=== PATIENT | female | born 2000 | race Caucasian/White ===

== ENCOUNTER 2018-10-06 22:44 | Inpatient (IN) | payer MEDICAID ==
[2018-10-07] MEDS ORDERED: DEXTROSE 50%-WATER SYRINGE 25 GM/50 ML DOSE IV PRN (00:30)
[2018-10-07] MEDS ORDERED: DEXTROSE 50%-WATER SYRINGE 12.5 GM/25 ML DOSE IV PRN (00:30)
[2018-10-07] MEDS ORDERED: DEXTROSE 40% GEL 15 GM TUBE PO PRN (00:30)
[2018-10-07] MEDS ORDERED: GLUCAGON,HUMAN RECOMB 1 MG INJ IM PRN (00:30)
[2018-10-07] MEDS ORDERED: DEXTROSE 40% GEL 15 GM TUBE X 2 PO PRN (00:30)
--- NOTE | 2018-10-07 00:33 | Admission Physical ---
Datetime Report Generated by CPN: 10/07/2018 00:33 CURRENT ADMISSION Chief Complaint: Other Chief Complaint Other: Elevated blood sugars, Pt with type 1 DM for 12 years Indication for Induction: Not Applicable Admit Impression : Medical Complication Admit Plan: Observation/Evaluation PHYSICAL EXAM General: Normal HEENT: Normal Neurologic: Normal Thyroid: Normal Heart: Normal Lungs: Normal Breast: Deferred Back: Normal Abdomen: Normal Genitourinary Exam: Deferred Extremities: Normal DTRs: Normal Pelvic Type: Adequate Vital Signs: Reviewed FETUS A Monitoring: External US FHR- Baseline: 120 Variability: Moderate 6-25bpm Decelerations: None FHR Category: Category I Admit Comment: Admit, begin IV fluids and insulin. Hospitalist consulted. INFORMED CONSENT Signature: with User ID: [email or web address]
[2018-10-07] MEDS ORDERED: RINGERS SOLUTION,LACTATED 1,000 ML IV PRN (00:36)
[2018-10-07] MEDS ORDERED: ACETAMINOPHEN 325 MG TABLET PO PRN (00:42)
[2018-10-07] MEDS ORDERED: INSULIN LISPRO 100 UNIT/ML 3 ML VIAL ONE ×5 (00:44→06:56)
[2018-10-07] MEDS ORDERED: ACETAMINOPHEN 325 MG TABLET ONE ×2 (00:47→04:38)
[2018-10-07 01:05] LABS: ABSOLUTE EOSINOPHILS # (AUTO) 0.1 10^3/uL (0.0-0.6); ABSOLUTE LYMPHOCYTES (AUTO) 1.9 10^3/uL (0.5-4.7); ABSOLUTE MONOCYTES (AUTO) 0.8 10^3/uL (0.1-1.4); ABSOLUTE NEUT (AUTO) 6.1 10^3/uL (1.7-8.2); BASOPHILS % (AUTO) 0.3 % (0-2); EOSINOPHILS % (AUTO) 0.7 % (0-6); HEMATOCRIT 31.5 % (36.0-47.0); HEMOGLOBIN 10.8 g/dL (12.0-15.5); LYMPHOCYTES % (AUTO) 21.9 % (13-45); MEAN CORPUSCULAR HEMOGLOBIN 28.4 pg (27.0-33.4); MEAN CORPUSCULAR HGB CONC 34.2 g/dL (32.0-36.0); MEAN CORPUSCULAR VOLUME 83 fl (80-97); MONOCYTES % (AUTO) 8.6 % (3-13); PLATELET COUNT 206 10^3/uL (150-450); RED BLOOD COUNT 3.79 10^6/uL (3.72-5.28); RED CELL DISTRIBUTION WIDTH 12.5 % (11.5-14.0); SEGMENTED NEUTROPHILS % (AUTO) 68.5 % (42-78); TOTAL CELLS COUNTED % (AUTO) 100 %; WHITE BLOOD COUNT 8.9 10^3/uL (4.0-10.5)
[2018-10-07] MEDS: INSULIN LISPRO 100 UNIT/ML 3 ML VIAL SUBCUT SCH ×4 (01:15→06:59)
[2018-10-07 01:16] LABS: APPEARANCE,URINE CLEAR; BILIRUBIN,URINE NEGATIVE (NEGATIVE); COLOR,URINE STRAW; GLUCOSE, URINE >=500 mg/dL (NEGATIVE); KETONES,URINE NEGATIVE (NEGATIVE); LEUKOCYTE ESTERASE,URINE MODERATE (NEGATIVE); NITRITE,URINE NEGATIVE (NEGATIVE); PROTEIN,URINE NEGATIVE (NEGATIVE); URINE SPECIFIC GRAVITY 1.039; UROBILINOGEN,URINE NEGATIVE mg/dL (<2.0)
[2018-10-07 01:28] LABS: ALBUMIN 3.2 g/dL (3.5-5.0); ALKALINE PHOSPHATASE 86 U/L (38-126); ANION GAP 8 (5-19); ASPARTATE AMINO TRANSFERASE 13 U/L (14-36); BILIRUBIN,DIRECT 0.2 mg/dL (0.0-0.4); BILIRUBIN,TOTAL 0.2 mg/dL (0.2-1.3); BLOOD UREA NITROGEN 7 mg/dL (7-20); CALCIUM 8.5 mg/dL (8.4-10.2); CARBON DIOXIDE 23 mmol/L (22-30); CHLORIDE 103 mmol/L (98-107); GLUCOSE 278 mg/dL (75-110); POTASSIUM 3.6 mmol/L (3.6-5.0); TOTAL PROTEIN 5.5 g/dL (6.3-8.2)
[2018-10-07 01:47] LABS: URINE AMPHETAMINES SCREEN NEGATIVE; URINE BARBITURATES SCREEN NEGATIVE; URINE BENZODIAZEPINES SCREEN NEGATIVE; URINE COCAINE SCREEN NEGATIVE; URINE MARIJUANA (THC) SCREEN NEGATIVE; URINE METHADONE SCREEN NEGATIVE; URINE PHENCYCLIDINE SCREEN NEGATIVE
--- NOTE | 2018-10-07 02:11 | Non Stress Test Report ---
Non Stress Test Datetime Report Generated by CPN: 10/07/2018 02:11 DEMOGRAPHIC Test Number: 1 INDICATION Indication for Study: Ordered by Provider; Other Indication for Study (NST) Other: Intermittent montioring Q Shift MONITORING Monitor Explained: Monitor Explained; Test Explained; Patient Verbalized Understanding Monitor Explained Other: NST ordered Q shift Time on Monitor: 10/06/2018 23:08 Time off Monitor: 10/07/2018 01:05 NST Duration: 117 NST INTERVENTIONS NST Interventions: PO Hydration Physician Notified NST: Dr. Pedraza BABY A: [id number] BABY A Movement : Present Contraction Frequency : irirregular with irritability FHR Baseline : 145 Accelerations : 10X10 Decelerations : None Variability : Moderate 6-25bpm NST Review: Appropriate for gestational age NST Results: AGA NST REPORT Report Trigger: Send Report
--- NOTE | 2018-10-07 03:02 | RADIOLOGY REPORT (SQ) ---
EXAM DESCRIPTION: US FOLLOW UP COMPLETED DATE/TME: 10/07/2018 00:00 CLINICAL HISTORY: 18 years, Female, check efw, position, cervical length, placenta COMPARISON: None. TECHNIQUE: Transabdominal pelvic ultrasound. Exam was performed by an research technologist and static images were submitted for review. LIMITATIONS: None. FINDINGS: Maternal: Ovaries: Obscured by gravid maternal uterus. Cervix: Closed and approximately 3.0 cm in length. : Number: Garcia. Status: Live . Presentation: Variable. Heart rate: 147 bpm. JAVED: 22.3 cm. Placenta: Position: Posterior. Complications: No previa or abruptio. Morphology: Cerebral ventricles: Identified. Cerebellum: Identified. Face: Identified. Four-chamber heart: Identified. Spine: Identified. Stomach: Identified. Bladder: Identified. Kidneys: Identified. Umbilical cord: # of vessels: Three. insertion site: Identified. Placental insertion site: Identified. Biometry: BPD: 6.79 cm = 27 weeks 2 days. HC: 25.62 cm = 27 weeks 6 days. AC: 24.02 cm = 28 weeks 2 days. FL: 5.17 cm = 27 weeks 4 days. Ratios (%): FL/AC: 21.5 (20-24). FL/BPD: 76.1 (71-87). HC/AC: 1.07 (1.05-1.22). CI: 80.3 (70-86). EFW = 1153 grams. 55%ile by Hadlock. (Please note that an incorrect LMP could make the percentile value inaccurate.) Clinical: LMP: 03/29/2018. MA: 27 weeks three days. PHILIP: 01/03/2019. Ultrasound: MA: 27 weeks five days. PHILIP: 01/01/2019. IMPRESSION: Single live intrauterine , as above. copyright 2010 [employer]- All Rights Reserved
[2018-10-07] MEDS ORDERED: INSULIN REG, HUMAN 100 UNIT/ML 3 ML VIAL (PYX) SUBCUT SCH (08:00)
[2018-10-07] MEDS ORDERED: INSULIN LISPRO 100 UNIT/ML 3 ML VIAL SUBCUT SCH (11:00)
--- NOTE | 2018-10-09 11:43 | PDOC DISCHARGE SUMMARY ---
General - Admit/Disc Date/PCP Admission Date/Primary Care Provider: 10/06/18 23:40 TG OLSEN MD Discharge Date: 10/07/18 - Additional Information Resuscitation Status: Full Code Discharge Diet: Diabetic Discharge Activity: Balance Activity w/Rest Home Medications: Pnv No.103/Folic/Om3s/Fish Oil [ Gummies] 1 tab PO DAILY 10/07/18 History of Present Illness Patient complains of: Elevated blood sugars History of Present Illness: KIRIT KWONG is a 18 year old female She presents approximately 30 weeks of with no care for a month and a half. She had lost her insurance with [employer] and now comes in with a fingerstick blood sugar of 400. She was given insulin and IV fluids. She was found not to have DKA. Arrangements were being made for internal medicine hospitalist to meet with her and address her diabetes medications with her pump. Hospital Course Hospital Course: The patient was being moved out to the floor and hospitalist was to be consulted. However she signed out AMA and left that morning without any follow- up. Result Laboratory Results: 10/07/18 00:57 10/07/18 00:57 Impressions: Obstetrics Ultrasound 10/07/18 00:00 IMPRESSION: Single live intrauterine , as above. copyright 2011 [employer]- All Rights Reserved Patient has uncontrolled diabetes during but has left AMA Plan Discharge Plan: She has been encouraged to seek medical care and get control of her fingerstick blood sugars however she has left AMA and no arrangements have been made. Time Spent: Greater than 30 Minutes Acute Heart Failure - Is this a Heart Failure Patient?: No
== END 2018-10-07 09:30 | disposition left against medical advice (07) | DRG 833 ==
LOC: LC 22:44 → LR 23:40
PROVIDERS: ADMIT Obstetrics & Gynecology; ATTEND Obstetrics & Gynecology
DX: O24.012 Pre-existing type 1 diabetes mellitus, in pregnancy, second trimester (principal); E10.65 Type 1 diabetes mellitus with hyperglycemia; O09.32 Supervision of pregnancy with insufficient antenatal care, second trimester; Z3A.30 30 weeks gestation of pregnancy; Z96.41 Presence of insulin pump (external) (internal); Z79.4 Long term (current) use of insulin; Z59.7 Insufficient social insurance and welfare support
CPT/HCPCS: 36415; 76805; 80053; 80307; 81001; 82962; 85025; 93976; J1815